=== PATIENT | male | born 1940 | race Native Hawaiian/Other Pacific Islander ===

== ENCOUNTER → 2017-06-27 | Outpatient (CLI) | payer MEDICARE, OTHER | END | disposition home or self-care (01) | LOC: RADPV 10:09 | PROVIDERS: ATTEND Internal Medicine Geriatric Medicine | DX: R91.8 Other nonspecific abnormal finding of lung field (principal); I51.7 Cardiomegaly; I70.0 Atherosclerosis of aorta | CPT/HCPCS: 71046 ==

== ENCOUNTER → 2017-09-01 | Outpatient (CLI) | payer MEDICARE, OTHER ==
[~2017-09-01] VITALS: Ht 162.6 cm; Wt 57.0 kg
[~2017-09-01] MED LIST: ATOR20TA86 PO; FINA5TAB41 PO; MULT1TAB70 PO; TIOT185 IH
[2017-09-01 13:10] VITALS: BP 130/72
== END | disposition home or self-care (01) ==
LOC: SRCNTR 12:50
PROVIDERS: ATTEND Internal Medicine Critical Care Medicine
DX: J44.1 Chronic obstructive pulmonary disease with (acute) exacerbation (principal); I25.10 Atherosclerotic heart disease of native coronary artery without angina pectoris; E78.5 Hyperlipidemia, unspecified; N40.0 Benign prostatic hyperplasia without lower urinary tract symptoms; Z95.5 Presence of coronary angioplasty implant and graft
CPT/HCPCS: G0463

== ENCOUNTER → 2017-09-13 | Outpatient (CLI) | payer MEDICARE, OTHER | END | disposition home or self-care (01) | LOC: RESP 11:22 | PROVIDERS: ATTEND Internal Medicine Critical Care Medicine | DX: J44.1 Chronic obstructive pulmonary disease with (acute) exacerbation (principal) | CPT/HCPCS: 94010; 94726; 94727; 94729 ==

== ENCOUNTER → 2017-10-10 | Outpatient (CLI) | payer MEDICARE, OTHER ==
[~2017-10-10] VITALS: Ht 162.6 cm; Wt 56.5 kg
[2017-10-10 13:01] VITALS: BP 107/62
== END | disposition home or self-care (01) ==
LOC: SRCNTR 12:59
PROVIDERS: ATTEND Internal Medicine Critical Care Medicine
DX: J44.1 Chronic obstructive pulmonary disease with (acute) exacerbation (principal); I25.10 Atherosclerotic heart disease of native coronary artery without angina pectoris; E78.5 Hyperlipidemia, unspecified; N40.0 Benign prostatic hyperplasia without lower urinary tract symptoms; Z95.5 Presence of coronary angioplasty implant and graft
CPT/HCPCS: G0463

== ENCOUNTER → 2018-03-22 | Outpatient (CLI) | payer MEDICARE, OTHER ==
[~2018-03-22] VITALS: Ht 162.6 cm; Wt 54.0 kg
[~2018-03-22] MED LIST changes: +ASPI-556 PO; -FINA5TAB41 PO; +FLUT1BLS3 PO; -TIOT185 IH
[2018-03-22 15:48] VITALS: BP 133/76
== END | disposition home or self-care (01) ==
LOC: SRCNTR 15:14
PROVIDERS: ATTEND Internal Medicine Critical Care Medicine
DX: J44.1 Chronic obstructive pulmonary disease with (acute) exacerbation (principal); I25.10 Atherosclerotic heart disease of native coronary artery without angina pectoris; E78.5 Hyperlipidemia, unspecified; N40.0 Benign prostatic hyperplasia without lower urinary tract symptoms; Z95.5 Presence of coronary angioplasty implant and graft
CPT/HCPCS: G0463

== ENCOUNTER → 2018-06-19 | Outpatient (CLI) | payer MEDICARE, OTHER ==
[~2018-06-19] VITALS: Ht 162.6 cm; Wt 55.5 kg
[2018-06-19 11:34] VITALS: BP 102/52
== END | disposition home or self-care (01) ==
LOC: SRCNTR 11:11
PROVIDERS: ATTEND Internal Medicine Critical Care Medicine
DX: J44.1 Chronic obstructive pulmonary disease with (acute) exacerbation (principal); I25.10 Atherosclerotic heart disease of native coronary artery without angina pectoris; E78.5 Hyperlipidemia, unspecified; N40.0 Benign prostatic hyperplasia without lower urinary tract symptoms; Z95.5 Presence of coronary angioplasty implant and graft
CPT/HCPCS: G0463

== ENCOUNTER → 2018-12-11 | Outpatient (CLI) | payer MEDICARE, OTHER | END | disposition home or self-care (01) | LOC: RADPV 11:34 | PROVIDERS: ATTEND Internal Medicine Geriatric Medicine | DX: I51.7 Cardiomegaly (principal); J61 Pneumoconiosis due to asbestos and other mineral fibers ==

== ENCOUNTER → 2019-07-10 | Outpatient (CLI) | payer MEDICARE, OTHER ==
[~2019-07-10] VITALS: Ht 162.6 cm; Wt 55.5 kg
[2019-07-10 09:45] VITALS: BP 95/55
== END | disposition home or self-care (01) ==
LOC: SRCNTR 09:43
PROVIDERS: ATTEND Internal Medicine Critical Care Medicine
DX: R05 Cough (principal); J44.9 Chronic obstructive pulmonary disease, unspecified; N40.0 Benign prostatic hyperplasia without lower urinary tract symptoms; I25.10 Atherosclerotic heart disease of native coronary artery without angina pectoris; E78.5 Hyperlipidemia, unspecified; Z95.5 Presence of coronary angioplasty implant and graft
CPT/HCPCS: G0463

== ENCOUNTER → 2019-07-10 | Outpatient (CLI) | payer MEDICARE, OTHER | END | disposition home or self-care (01) | LOC: RADPV 11:02 | PROVIDERS: ATTEND Internal Medicine Critical Care Medicine | DX: J44.9 Chronic obstructive pulmonary disease, unspecified (principal); I51.7 Cardiomegaly ==

== ENCOUNTER → 2020-05-27 | Outpatient (CLI) | payer MEDICARE, OTHER ==
[~2020-05-27] MED LIST changes: +MULT-660 PO; -MULT1TAB70 PO
== END | disposition home or self-care (01) ==
LOC: RADPV 10:29
PROVIDERS: ATTEND Internal Medicine Geriatric Medicine
DX: I70.0 Atherosclerosis of aorta (principal); R04.2 Hemoptysis; I51.7 Cardiomegaly; J98.11 Atelectasis
CPT/HCPCS: 71046; 71046-TC

== ENCOUNTER → 2020-06-04 | Outpatient (CLI) | payer MEDICARE, OTHER ==
[2020-06-04 09:36] LABS: ALANINE AMINOTRANSFERASE 24 U/L (12-78); ALBUMIN 3.5 g/dL (3.4-5.0); ALKALINE PHOSPHATASE 84 U/L (46-116); ANION GAP 5 mmol/L (8-16); ASPARTATE AMINOTRANSFERASE 37 U/L (15-37); BILIRUBIN,TOTAL 0.8 mg/dL (0.1-1.0); CALCIUM, TOTAL 8.5 mg/dL (8.8-10.5); CARBON DIOXIDE 29 mmol/L (22-29); CHLORIDE 104 mmol/L (98-107); CREATININE 1.02 mg/dL (0.60-1.30); GLUCOSE,RANDOM 107 mg/dL (70-110); POTASSIUM 4.1 mmol/L (3.5-5.1); SODIUM SERUM 138 mmol/L (136-145); TOTAL PROTEIN, SERUM 8.1 g/dL (6.4-8.2); UREA NITROGEN, BLOOD 15 mg/dL (7-18)
[2020-06-04 09:46] LABS: GLOMERULAR FILTR. RATE CALC > 60 mL/min (>60)
== END | disposition home or self-care (01) ==
LOC: LABMN 08:13
PROVIDERS: ATTEND Internal Medicine Geriatric Medicine
DX: G47.33 Obstructive sleep apnea (adult) (pediatric) (principal); E78.5 Hyperlipidemia, unspecified; R04.2 Hemoptysis

== ENCOUNTER → 2020-06-05 | Outpatient (CLI) | payer MEDICARE, OTHER ==
[~2020-06-05] MED LIST changes: +IOVERSOL 350 MG/ML 100 ML VIAL ONE; +SODIUM CHLORIDE 0.9% 100 ML ONE
== END | disposition home or self-care (01) ==
LOC: RADMN 07:52
PROVIDERS: ATTEND Internal Medicine Geriatric Medicine
DX: J43.2 Centrilobular emphysema (principal); J47.9 Bronchiectasis, uncomplicated; R91.1 Solitary pulmonary nodule; R04.2 Hemoptysis
CPT/HCPCS: 71275; J7050; Q9967; X7700

== ENCOUNTER → 2020-08-11 | Outpatient (CLI) | payer MEDICARE, OTHER ==
[~2020-08-11] VITALS: Ht 162.6 cm; Wt 56.0 kg
[~2020-08-11] MED LIST changes: -IOVERSOL 350 MG/ML 100 ML VIAL ONE; -SODIUM CHLORIDE 0.9% 100 ML ONE
[2020-08-11 10:07] VITALS: BP 73/43
== END | disposition home or self-care (01) ==
LOC: SRCNTR 09:43
PROVIDERS: ATTEND Internal Medicine Critical Care Medicine
DX: I25.10 Atherosclerotic heart disease of native coronary artery without angina pectoris (principal); J44.9 Chronic obstructive pulmonary disease, unspecified; E78.5 Hyperlipidemia, unspecified; N40.0 Benign prostatic hyperplasia without lower urinary tract symptoms; N39.0 Urinary tract infection, site not specified; R04.2 Hemoptysis; R91.1 Solitary pulmonary nodule; Z95.5 Presence of coronary angioplasty implant and graft
CPT/HCPCS: G0463

== ENCOUNTER → 2020-08-13 | Outpatient (CLI) | payer MEDICARE, OTHER | END | disposition home or self-care (01) | LOC: LABMN 09:58 | PROVIDERS: ATTEND Internal Medicine Critical Care Medicine | DX: J47.9 Bronchiectasis, uncomplicated (principal) | CPT/HCPCS: 87015; 87206 ==

== ENCOUNTER → 2020-08-14 | Outpatient (CLI) | payer MEDICARE, OTHER | END | disposition home or self-care (01) | LOC: LABMN 08:36 | PROVIDERS: ATTEND Internal Medicine Critical Care Medicine | DX: J47.9 Bronchiectasis, uncomplicated (principal) | CPT/HCPCS: 87015; 87206 ==

== ENCOUNTER → 2020-08-15 | Outpatient (CLI) | payer MEDICARE, OTHER | END | disposition home or self-care (01) | LOC: LABMN 09:53 | PROVIDERS: ATTEND Internal Medicine Critical Care Medicine | DX: J47.9 Bronchiectasis, uncomplicated (principal) | CPT/HCPCS: 87015; 87206 ==

== ENCOUNTER → 2020-11-13 | Outpatient (CLI) | payer MEDICARE, OTHER ==
[~2020-11-13] VITALS: Ht 165.1 cm; Wt 56.1 kg
[2020-11-13 10:20] VITALS: BP 99/62
== END | disposition home or self-care (01) ==
LOC: SRCNTR 09:42
PROVIDERS: ATTEND Internal Medicine Critical Care Medicine
DX: R04.2 Hemoptysis (principal); J44.1 Chronic obstructive pulmonary disease with (acute) exacerbation; I25.10 Atherosclerotic heart disease of native coronary artery without angina pectoris; E78.5 Hyperlipidemia, unspecified; N40.0 Benign prostatic hyperplasia without lower urinary tract symptoms; J06.9 Acute upper respiratory infection, unspecified; R91.1 Solitary pulmonary nodule; Z95.828 Presence of other vascular implants and grafts; Z79.82 Long term (current) use of aspirin; Z79.899 Other long term (current) drug therapy; Z98.890 Other specified postprocedural states
CPT/HCPCS: G0463

== ENCOUNTER → 2020-11-17 | Outpatient (CLI) | payer MEDICARE, OTHER | END | disposition home or self-care (01) | LOC: RADMN 10:21 → LABMN 10:21 | PROVIDERS: ATTEND Internal Medicine Critical Care Medicine | DX: R04.2 Hemoptysis (principal) | CPT/HCPCS: 87015; 87206 ==

== ENCOUNTER → 2020-11-18 | Outpatient (CLI) | payer MEDICARE, OTHER | END | disposition home or self-care (01) | LOC: LABPV 10:01 | PROVIDERS: ATTEND Internal Medicine Critical Care Medicine | DX: R05 Cough (principal) | CPT/HCPCS: 87015; 87206 ==

== ENCOUNTER → 2020-11-19 | Outpatient (CLI) | payer MEDICARE, OTHER | END | disposition home or self-care (01) | LOC: LABPV 08:34 | PROVIDERS: ATTEND Internal Medicine Critical Care Medicine | DX: R04.2 Hemoptysis (principal) | CPT/HCPCS: 71250 ==

== ENCOUNTER → 2020-11-27 | Outpatient (CLI) | payer MEDICARE, OTHER ==
[~2020-11-27] VITALS: Ht 162.6 cm; Wt 55.8 kg
[2020-11-27 09:51] VITALS: BP 116/69
== END | disposition home or self-care (01) ==
LOC: SRCNTR 09:30
PROVIDERS: ATTEND Internal Medicine Critical Care Medicine
DX: J44.1 Chronic obstructive pulmonary disease with (acute) exacerbation (principal); R04.2 Hemoptysis; R91.1 Solitary pulmonary nodule; I25.10 Atherosclerotic heart disease of native coronary artery without angina pectoris; E78.5 Hyperlipidemia, unspecified; N40.0 Benign prostatic hyperplasia without lower urinary tract symptoms; J06.9 Acute upper respiratory infection, unspecified; Z79.82 Long term (current) use of aspirin; Z79.899 Other long term (current) drug therapy
CPT/HCPCS: G0463; Z7500

== ENCOUNTER → 2022-01-20 | Outpatient (CLI) | payer MEDICARE, OTHER ==
[2022-01-20 10:36] VITALS: BP 93/50
== END | disposition home or self-care (01) ==
LOC: SRCNTR 10:06 → EDSTATUS 10:20
PROVIDERS: ATTEND Internal Medicine Critical Care Medicine
DX: I25.10 Atherosclerotic heart disease of native coronary artery without angina pectoris (principal); E78.5 Hyperlipidemia, unspecified; N40.0 Benign prostatic hyperplasia without lower urinary tract symptoms; J44.1 Chronic obstructive pulmonary disease with (acute) exacerbation; J06.9 Acute upper respiratory infection, unspecified
CPT/HCPCS: G0463; Z7500

== ENCOUNTER → 2022-03-25 | Outpatient (CLI) | payer MEDICARE, OTHER | END | disposition home or self-care (01) | LOC: RADMN 10:17 | PROVIDERS: ATTEND Internal Medicine Pulmonary Disease | DX: R91.1 Solitary pulmonary nodule (principal); I73.9 Peripheral vascular disease, unspecified; M41.54 Other secondary scoliosis, thoracic region; I70.0 Atherosclerosis of aorta; I25.10 Atherosclerotic heart disease of native coronary artery without angina pectoris | CPT/HCPCS: 71250 ==

== ENCOUNTER → 2022-09-29 | Outpatient (CLI) | payer MEDICARE, OTHER ==
[~2022-09-29] VITALS: Ht 162.6 cm; Wt 52.5 kg
[2022-09-29 12:54] VITALS: BP 119/74
== END | disposition home or self-care (01) ==
LOC: SRCNTR 12:15
PROVIDERS: ATTEND Internal Medicine Pulmonary Disease
DX: I25.10 Atherosclerotic heart disease of native coronary artery without angina pectoris (principal); J44.1 Chronic obstructive pulmonary disease with (acute) exacerbation; E78.5 Hyperlipidemia, unspecified; N40.0 Benign prostatic hyperplasia without lower urinary tract symptoms; R91.1 Solitary pulmonary nodule; J06.9 Acute upper respiratory infection, unspecified; Z95.5 Presence of coronary angioplasty implant and graft
CPT/HCPCS: G0463; Z7500

== ENCOUNTER → 2022-09-30 | Outpatient (CLI) | payer MEDICARE, OTHER | END | disposition home or self-care (01) | LOC: RADMN 08:22 | PROVIDERS: ATTEND Internal Medicine Pulmonary Disease | DX: R91.8 Other nonspecific abnormal finding of lung field (principal) | CPT/HCPCS: 71250 ==

== ENCOUNTER → 2022-10-28 | Outpatient (CLI) | payer MEDICARE, OTHER ==
[~2022-10-28] VITALS: Ht 162.6 cm; Wt 53.0 kg
[~2022-10-28] MED LIST changes: +ATOR20TA PO; -ATOR20TA86 PO
[2022-10-28 10:07] VITALS: BP 107/60
== END | disposition home or self-care (01) ==
LOC: SRCNTR 09:45
PROVIDERS: ATTEND Internal Medicine Pulmonary Disease
DX: R91.8 Other nonspecific abnormal finding of lung field (principal); R91.1 Solitary pulmonary nodule; R04.2 Hemoptysis; J44.1 Chronic obstructive pulmonary disease with (acute) exacerbation; I25.10 Atherosclerotic heart disease of native coronary artery without angina pectoris; E78.5 Hyperlipidemia, unspecified; N40.0 Benign prostatic hyperplasia without lower urinary tract symptoms; J06.9 Acute upper respiratory infection, unspecified; Z95.5 Presence of coronary angioplasty implant and graft
CPT/HCPCS: G0463

== ENCOUNTER → 2022-10-28 | Outpatient (CLI) | payer MEDICARE, OTHER ==
[2022-10-28 12:31] LABS: BASOPHILS % (AUTO) 0.5 % (0.0-2.0); EOSINOPHILS % (AUTO) 2.2 % (1.0-6.0); HEMATOCRIT 37.3 % (41-53); HEMOGLOBIN 12.1 g/dL (13.5-17.5); LYMPHOCYTES # (AUTO) 1.1 K/uL (1.0-4.8); LYMPHOCYTES % (AUTO) 21.7 % (22.0-44.0); MEAN CORPUSCULAR HGB CONC 32.5 G/dL (31.0-37.0); MEAN CORPUSCULAR VOLUME 98 fL (80-100); MONOCYTES # (AUTO) 0.7 K/uL (0.1-1.0); MONOCYTES % (AUTO) 13.5 % (2.0-9.0); NEUTROPHILS # (AUTO) 3.2 K/uL (1.8-7.7); NEUTROPHILS % (AUTO) 62.1 % (40.0-70.0); PLATELET COUNT (AUTO) 105 K/uL (150-450); RED BLOOD CELL COUNT(AUTO) 3.79 MIL/uL (4.50-5.90); RED CELL DISTRIBUTION WIDTH 14.4 % (11.5-14.5)
[2022-10-28 12:34] LABS: INR 1.1 (0.9-1.1); PROTHROMBIN TIME 11.4 SEC (9.4-11.6)
[2022-10-28 12:35] LABS: ALANINE AMINOTRANSFERASE 25 U/L (12-78); ALBUMIN 3.4 g/dL (3.4-5.0); ALKALINE PHOSPHATASE 83 U/L (46-116); ANION GAP 2 mmol/L (8-16); ASPARTATE AMINOTRANSFERASE 48 U/L (15-37); BILIRUBIN,TOTAL 0.5 mg/dL (0.1-1.0); CALCIUM, TOTAL 8.8 mg/dL (8.8-10.5); CARBON DIOXIDE 31 mmol/L (22-29); CHLORIDE 104 mmol/L (98-107); CREATININE 1.06 mg/dL (0.60-1.30); GLOMERULAR FILTR. RATE CALC > 60 mL/min (>60); GLUCOSE,RANDOM 107 mg/dL (70-110); POTASSIUM 4.6 mmol/L (3.5-5.1); SODIUM SERUM 137 mmol/L (136-145); TOTAL PROTEIN, SERUM 8.5 g/dL (6.4-8.2)
== END | disposition home or self-care (01) ==
LOC: LABMN 11:56
PROVIDERS: ATTEND Internal Medicine Pulmonary Disease
DX: Z01.89 Encounter for other specified special examinations (principal); Z86.2 Personal history of diseases of the blood and blood-forming organs and certain disorders involving the immune mechanism
CPT/HCPCS: 80053; 85025; 85610; 85730

== ENCOUNTER 2023-04-12 17:12 | Emergency (ER) | payer MEDICARE, OTHER ==
[~2023-04-12] VITALS: Ht 177.8 cm; Wt 72.7 kg
[2023-04-12] MEDS ORDERED: TAMS0.4C94 PO (17:18)
[2023-04-12] MEDS ORDERED: COMBIGAN OU (17:18)
[2023-04-12] MEDS ORDERED: CHOL200074 PO (17:18)
[2023-04-12] MEDS ORDERED: FLUT1BLS3 IH (17:18)
[2023-04-12] MEDS ORDERED: ATOR20TA65 PO (17:18)
[2023-04-12] MEDS ORDERED: AZIT-104 PO (17:18)
[2023-04-12 17:31] VITALS: TEMP 98.6
[2023-04-12] MEDS ORDERED: BRIM5DRO28 OU (17:47)
[2023-04-12 18:31] LABS: BASOPHILS % (AUTO) 0.5 % (0.0-2.0); HEMATOCRIT 38.2 % (41-53); HEMOGLOBIN 12.4 g/dL (13.5-17.5); LYMPHOCYTES # (AUTO) 1.2 K/uL (1.0-4.8); LYMPHOCYTES % (AUTO) 16.9 % (22.0-44.0); MEAN CORPUSCULAR HEMOGLOBIN 31.4 pg (26.0-34.0); MEAN CORPUSCULAR HGB CONC 32.6 G/dL (31.0-37.0); MEAN CORPUSCULAR VOLUME 96 fL (80-100); MONOCYTES # (AUTO) 0.7 K/uL (0.1-1.0); MONOCYTES % (AUTO) 9.5 % (2.0-9.0); NEUTROPHILS # (AUTO) 4.8 K/uL (1.8-7.7); NEUTROPHILS % (AUTO) 70.1 % (40.0-70.0); PLATELET COUNT (AUTO) 152 K/uL (150-450); RED BLOOD CELL COUNT(AUTO) 3.97 MIL/uL (4.50-5.90); RED CELL DISTRIBUTION WIDTH 14.6 % (11.5-14.5); WHITE BLOOD COUNT (AUTO) 6.9 K/uL (4.5-11.0)
[2023-04-12 18:35] LABS: ANION GAP 7 mmol/L (8-16); CALCIUM, TOTAL 9.1 mg/dL (8.8-10.5); CARBON DIOXIDE 31 mmol/L (22-29); CHLORIDE 99 mmol/L (98-107); CREATININE 1.01 mg/dL (0.60-1.30); GLOMERULAR FILTR. RATE CALC > 60 mL/min (>60); GLUCOSE,RANDOM 103 mg/dL (70-110); POTASSIUM 4.2 mmol/L (3.5-5.1); SODIUM SERUM 136 mmol/L (136-145); UREA NITROGEN, BLOOD 20 mg/dL (7-18)
[2023-04-12 18:41] LABS: ALANINE AMINOTRANSFERASE 31 U/L (12-78); ALBUMIN 3.5 g/dL (3.4-5.0); ALKALINE PHOSPHATASE 90 U/L (46-116); ASPARTATE AMINOTRANSFERASE 37 U/L (15-37); BILIRUBIN,TOTAL 0.7 mg/dL (0.1-1.0); TOTAL PROTEIN, SERUM 10.4 g/dL (6.4-8.2)
[2023-04-12 18:49] LABS: D-DIMER 6.2 mg/L FEU (0.00-0.50); INR 1.1 (0.9-1.1)
[2023-04-12 19:03] LABS: B-TYPE NATRIURETIC PEPTIDE 270 pg/mL (0-100)
[2023-04-12 19:25] LABS: TROPONIN I-HIGH SENSITIVITY 129 ng/L (<76)
[2023-04-12 19:48] LABS: COVID AG,FIA SOURCE NASAL SWAB
[2023-04-12 19:58] LABS: SARS-COV2 (COVID) ANTIGEN,FIA Negative (Negative)
[2023-04-12] MEDS ORDERED: IOHEXOL 350 MG/ML 100 ML VIAL ONE (20:23)
[2023-04-12] MEDS ORDERED: SODIUM CHLORIDE 0.9% 100 ML ONE (20:23)
[2023-04-12] MEDS ORDERED: PIPERACILLIN/TAZO 3.375 GM/D5W 50 ML IV SCH (21:00)
[2023-04-12] MEDS ORDERED: ONDANSETRON HCL 4 MG/2 ML VIAL IVP PRN (21:00)
[2023-04-12] MEDS ORDERED: ACETAMINOPHEN 325 MG TABLET PO PRN (21:00)
[2023-04-12] MEDS ORDERED: DOCUSATE SODIUM 100 MG CAPSULE PO SCH (21:00)
[2023-04-12] MEDS ORDERED: TRANEXAMIC ACID 1,000 MG in DEXTROSE 5%-WATER 50 ML IV ONE (21:30)
[2023-04-12] MEDS ORDERED: SODIUM CHLORIDE 0.9% 1,000 ML IV SCH (23:15)
[2023-04-12] MEDS ORDERED: VANCOMYCIN HCL 1.25 GM in DEXTROSE 5%-WATER 250 ML IV ONE (23:30)
[2023-04-12 23:53] VITALS: BP 135/88; PULSE 78; RESP 21
[2023-04-12 23:55] LABS: TROPONIN I-HIGH SENSITIVITY 130 ng/L (<76)
== END 2023-04-13 00:30 | disposition left against medical advice (07) ==
LOC: EMS 17:13
DX: R04.2 Hemoptysis (principal); R91.8 Other nonspecific abnormal finding of lung field; R11.2 Nausea with vomiting, unspecified; J44.9 Chronic obstructive pulmonary disease, unspecified; Z20.822 Contact with and (suspected) exposure to COVID-19
CPT/HCPCS: 99285; 71260; 96365; 71046; 96367; 96366; 87426; 80053; 83880; 84484; 85025; 85379; 85610; 85730; 87040; 36415; 72193; 74160; 93005; 96368; J2543; J3370; Q9967; J7060 ×2; J7050; J3490

== ENCOUNTER → 2023-05-06 | Outpatient (CLI) | payer MEDICARE, OTHER ==
[~2023-05-06] VITALS: Ht 162.6 cm; Wt 51.0 kg
[~2023-05-06] MED LIST changes: -ASPI-556 PO; -ATOR20TA PO; +ATOR20TA65 PO; +AZIT-104 PO; +BRIM5DRO28 OU; +CHOL200074 PO; +FLUT1BLS3 IH; -FLUT1BLS3 PO; -MULT-660 PO; +TAMS0.4C94 PO
[2023-05-06 11:54] VITALS: BP 90/42; PULSE 58; RESP 16; TEMP 97.8; O2SAT 99
== END | disposition home or self-care (01) ==
LOC: SRCNTR 11:33
PROVIDERS: ATTEND Internal Medicine Pulmonary Disease
DX: R91.8 Other nonspecific abnormal finding of lung field (principal); J47.9 Bronchiectasis, uncomplicated; R04.2 Hemoptysis; R91.1 Solitary pulmonary nodule; E78.5 Hyperlipidemia, unspecified; J44.1 Chronic obstructive pulmonary disease with (acute) exacerbation; N40.0 Benign prostatic hyperplasia without lower urinary tract symptoms; J06.9 Acute upper respiratory infection, unspecified
CPT/HCPCS: G0463

== ENCOUNTER → 2024-10-11 | Outpatient (CLI) | payer MEDICARE, OTHER ==
[~2024-10-11] MED LIST changes: -AZIT-104 PO; -TAMS0.4C94 PO
== END | disposition home or self-care (01) ==
LOC: RADMN 12:28
PROVIDERS: ATTEND Internal Medicine Pulmonary Disease
DX: J98.4 Other disorders of lung (principal); R91.8 Other nonspecific abnormal finding of lung field; R91.1 Solitary pulmonary nodule; K44.9 Diaphragmatic hernia without obstruction or gangrene
CPT/HCPCS: 71250